=== PATIENT | male | born 1965 | race Caucasian/White ===

== ENCOUNTER → 2018-01-27 | Outpatient (CLI) | payer OTHER ==
[~2018-01-27] VITALS: Ht 188 cm; Wt 92.1 kg
[~2018-01-27] MED LIST: BACLOFEN20 MG PO; BUTRANS1 EAC1 TRANSDERM; DIAZEPAM 10 MG10 M2 PO; LEVSIN0.125 MG PO; PERCOCET 10-321 EACH PO; QUETIAPINE FUM300 MG PO; REMERON 30 MG T30 M1 PO; TOPROL XL100 MG PO
--- NOTE | ~2018-01-27 | HPC ---
[facility] [place] [address] PAIN MANAGEMENT CONSULTATION Name: ALEX GENAO Room #: [facility] [id number] Admission: 01/27/18 Attend Phys: Good Guerrier DO Discharge: Date of : 69 Report #: [id number] THIS REPORT FOR: //name// CC: Nichelle Farfan MD FAM physician/PCP Good Guerrier DATE OF SERVICE: 01/27/2018 REFERRING PHYSICIAN: Dr. Nichelle Farfan. CHIEF COMPLAINT: Lower abdominal pain and bilateral groin pain. HISTORY OF PRESENT ILLNESS: As you know, the patient is an unfortunate 52-year-old male who has been experiencing chronic lower abdominal pain, bilateral groin pain that has been present since 10/05/2017. The patient denies specific injury or trauma that may have led to symptom development. The patient reports he has had multiple abdominal surgeries and believes the most recent may have exacerbated his symptoms. He indicates that the pain he is experiencing is across the lower abdomen and pelvic area radiating towards the pubic symphysis. He indicates the pain is a sensation of tightness and burning. It is noted sometimes with urination. He has not undergone any physical therapy. He does note core strengthening even after the multiple abdominal surgeries. He apparently has been taking Percocet 10/325 three times a day and has been unable to discontinue the use. He has returned to work. He continues to take pain medication. He was referred to our service to discuss if we have any suggestions for treatment. The patient describes his pain as continuous. He indicates shooting, cramping, aching, sharp, stabbing, tender, and tightness as the descriptors. He places current pain score at 8/10, daily average at 8-9/10, worst pain has been is 10/10. The patient indicates pain is exacerbated with activity, improves with medication. He has been referred to our service to discuss potential options of treatment and suggestions for medication management. PAST MEDICAL HISTORY: 1. Chronic colon problems. 2. Neoplasm of the sigmoid colon. 3. Depression. PAST SURGICAL HISTORY: Leg surgeries 2002 through 2005, colon surgeries 2010 through 2017. SOCIAL HISTORY: The patient smokes 2 packs of tobacco per day and has done so for 25 years. Denies IV or illicit drug use. Denies any chronic alcohol use. 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 He is working, not receiving workmen's compensation, [place] [address] PAIN MANAGEMENT CONSULTATION Name: ALEX GENAO Room #: REG [facility]#: [id number] Admission: 01/27/18 Attend Phys: Good Guerrier DO Discharge: Date of : 69 Report #: [id number] trying to obtain disability benefits. He is not in litigation in regards to his pain. He is unaccompanied today. REVIEW OF SYSTEMS: Positive for weight change, night sweats, fatigue and weakness, frequent and recurrent headaches, wearing corrective eyewear, hearing loss with tinnitus, nausea, vomiting, constipation, abdominal pain, frequent urination, dysuria, nocturia, change in force or stream urination, sexual difficulty, scrotal pain, headaches, nervousness, depression, insomnia, excessive thirst and urination. All other review of systems negative per 12-point review of systems other than those listed in history of present illness. Pain impact score 65/70, near complete interference of daily activities secondary to pain. ALLERGIES: ZOLPIDEM. CURRENT MEDICATIONS: Oxycodone 10 mg 3 times a day, diazepam 10 mg p.o. at bedtime, Remeron 30 mg p.o. at bedtime, metoprolol 100 mg once a day, quetiapine 300 mg per day. IMAGING: No imaging available. PHYSICAL EXAMINATION: VITAL SIGNS: Blood pressure 153/91, pulse 80, respiratory rate 16 and unlabored. The patient is 99% on room air. Height 6 feet 2 inches tall, weight 203 pounds, BMI calculated 26.1. GENERAL: Well-developed, well-nourished, well-hydrated 52-year-old male who smells strongly of tobacco smoke, appears much older than stated age. He is placing pain score at /10. HEENT: Normocephalic, atraumatic. Pupils equal, round, reactive to light. Extraocular muscles are intact. Sclerae nonicteric without injection. NEUROLOGIC: Cranial nerves 2-12 grossly intact. Speech is fluent. The patient deemed a fair historian. LUNGS: Decreased breath sounds bilaterally, prolonged expiratory phase. CARDIOVASCULAR: Regular. No appreciable gallop or rub. ABDOMEN: Tender to palpation in the lower portion of the abdomen. There is a colostomy, which appears to be functioning appropriately. It does have stool and gas within. There is no significant erythema around the colostomy site. Palpatory tenderness is noted all the way into the bilateral groin. Bowel sounds are present. EXTREMITIES: Show no clubbing, no cyanosis, no edema. ASSESSMENT: 1. Chronic abdominal pain. 2. Chronic abdominal wall pain. [facility] [address] [place] [address] PAIN MANAGEMENT CONSULTATION Name: ALEX GENAO Room #: ALTHEA Bray#: [id number] Admission: 01/27/18 Attend Phys: Good Guerrier DO Discharge: Date of : 69 Report #: [id number] 3. Bilateral inguinal pain. 4. Opioid dependency. 5. Chronic intractable pain. PLAN: 1. The patient has been referred to our service by his colorectal surgeon for suggestions of treatment to assist in pain control. It does appear by physical exam today that the patient is suffering from issues of the abdominal wall, more than deep abdominal viscera. The symptoms appear to be related to the insertion points of the abdominal musculature upon the iliac or the iliac crests. His distribution of symptoms correlate to the lower pelvic area between the ASIS and all the way to the pubic symphysis. The patient denies any abdominal wall mesh, but given the extensive surgeries, he may have issues with the abdominal wall itself. Further evaluation is being done in regards to underlying viscera by Dr. Farfan who has the patient undergoing CT examination on . We have made the following suggestions for treatment options based on our physical exam. Certainly if pathology is noted in the CT examination, surgical options may be necessary, but given current presentation, it does not appear the patient has any specific visceral findings. This is based on previous CT examinations, which showed no significant pathology. We have discussed with the patient more appropriate treatment options today, the following was discussed. 2. Would recommend strongly the patient come off Percocet. Percocet is not an agent that should be utilized for abdominal issues. It has severe constipating issues. It causes bowel dysfunction, which can only exacerbate the patient's symptoms. The fact that he is reporting he is taking 3 tablets a day to our services does not correlate with the discussion I had with the colorectal surgeon who indicates that this patient is running through opioids much more rapidly than they have been prescribed. This is quite concerning. 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 The patient also indicates that he has had surgeries in the past where he was given excessive amounts of opioids and he had trouble with them as well. There may be a component of physiologic and psychologic addiction to these medications as part of the patient's continued use of opioid medications. We would recommend changing that medication to a pain medication that has low addiction potential and will provide good benefit for pain and have low side effects from the GI . 3. We have recommended a Butrans patch 15 mcg patch. We have given the patient #15. Would not recommend any other opioid like medication in this patient's case. Buprenorphine, whether it be in a patch form such as we have written today, a oral dissolving form in the form of Belbuca or worst case scenario 2 mg buprenorphine tablets on a p.r.n. basis would be the only suggested medication as this has low potential GI side effects, thus reducing complication with multiple abdominal surgeries, but will provide analgesic benefit. This has a low addiction potential as well, which helps with the patient to being able to come off the medication in the future. We have provided this patient with a [address] [place] [id number] PAIN MANAGEMENT CONSULTATION Name: ALEX GENAO Room #: REG BARBIE Bray#: [id number] Admission: 01/27/18 Attend Phys: Good Guerrier DO Discharge: Date of : 69 Report #: [id number] mcg Butrans patch. I have discussed with the patient that there is a possibility this may have some difficulty with coverage, but if the patient wishes pain medication, I recommend only this therapy. 4. The patient's symptoms do appear to be muscle wall related. I have started the patient on baclofen 20 mg dose 1 tab p.o. t.i.d. I have given the patient #90 tablets, advised the patient not to take this medication while operating heavy equipment or work. He is to use this only when his pain is related to muscle spasming. 5. The patient will be started on Levsin 0.125 mg 1 tab p.o. t.i.d. for abdominal cramping. I have given the patient #90 tablets, advised the patient to take the medication when the symptoms are intense. This should help with muscle spasming of the abdominal viscera. 6. We will see the patient back in followup visit in approximately one month. At that time, we will review the efficacy of the medication provided. If it appears appropriate and he is doing well, we will be returning his care to the referring physician with suggestions on how to wean off the buprenorphine over a month to 2-month period. 7. We had a very long discussion today with the patient about smoking cessation. The patient is smoking 2 packs of tobacco per day. He has been advised of the direct links between smoking and chronic pain. We had [facility] do not provide long-term opioid therapy in individuals who are continuing to smoke as this is exacerbating chronic pain issues. We have discussed this with the patient today. At present, he is not interested or considering smoking cessation at this time. 8. We wish to thank Dr. Farfan for the referral of the patient to our clinic. We will keep you apprised of his response to the medication changes made today. Once we have stabilized him on his dose of medication, we will be returning his care to his primary care physician if he is unwilling to comply with our recommended treatment options including smoking cessation. Again, we wish to thank you for the opportunity to see the patient in consultation. By: [id number] Good Guerrier DO /nt
[2018-01-27 12:39] VITALS: BP 153/91
== END ==
LOC: PAIN 07:54
DX: M54.5 Low back pain (principal); R10.30 Lower abdominal pain, unspecified; G89.4 Chronic pain syndrome; F11.20 Opioid dependence, uncomplicated